=== PATIENT | female | born 1990 | race Hispanic/Latino ===

== ENCOUNTER 2016-03-16 23:59 | Emergency (ER) ==
[2016-03-17] MEDS ORDERED: XYLOCAINE-MPF 1% 5 ML ONE (00:17)
--- NOTE | 2016-03-17 00:23 | PROVIDER DOCUMENTATION ---
HPI-Rash/Wound/ReCheck - General Chief Complaint: Abscess Stated Complaint: EXTREMITY PAIN Time Seen by Provider: 03/17/16 00:18 Source: patient Allergies/Adverse Reactions: Allergies Allergy/AdvReac Type Severity Reaction Status Date / Time No Known Allergies Allergy Verified 09/06/13 15:20 Home Medications: No Home Medications 03/17/16 - History of Present Illness-Dermatology Nature of Presenting Problem: 25 y/o F presents to the ED with an abscess to her right lower leg above the ankle. Pt states she notice it 4 days ago with it getting worse each day. The spot is red and warm to touch. Location: reports: lower extremity Quality: reports: painful Severity: reports: moderate Onset/Duration: reports: 4 days ago Timing: reports: still present, getting worse Exposure: reports: unknown cause Similar Symptoms Previously?: No Recently seen or treated by another doctor?: No Review of Systems - Adult - REVIEW OF SYSTEMS - ADULT Constitutional: denies: chills, fever Eyes: reports: no symptoms reported Ears, Nose, Mouth & Throat: reports: no symptoms reported Cardiovascular: reports: no symptoms reported Respiratory: denies: cough Gastrointestinal: reports: no symptoms reported Genitourinary: reports: no symptoms reported Musculoskeletal: reports: no symptoms reported Integumentary: reports: itching, skin sores/ulcer. denies: hair loss, rash Neurological: reports: no symptoms reported Psychiatric: reports: no symptoms reported Endocrine: reports: no symptoms reported Hematologic/Lymphatic: reports: no symptoms reported Allergic/Immunologic: reports: no symptoms reported All Other Systems: Reviewed and Negative Past History - Adult - PAST MEDICAL HISTORY-ADULT Review of Records: reports: Old Records Reviewed, Nursing Assessment Review, Medications Reviewed Major Childhood Illnesses: reports: denies history Cardiovascular: reports: denies history Respiratory: reports: denies history Gastrointestinal: reports: denies history Obstetrical/Gynecological: reports: denies history Genitourinary: reports: denies history Musculoskeletal: reports: denies history Neurological: reports: denies history Psychiatric: reports: anxiety Endocrine/Immune: reports: denies history Other Conditions: reports: denies history - PRIOR SURGERIES/PROCEDURES Surgical/Procedure History: reports: none - PRIOR HOSPITALIZATIONS Prior Hospitalizations: reports: none - IMMUNIZATION STATUS Childhood Immunizations: See Nurse Assessment Flu Vaccine: See Nurse Assessment - FAMILY HISTORY Family History: reviewed, not pertinent Physical Exam-General - PHYSICAL EXAM-ADULT Initial Vital Signs Reviewed: Yes - CONSTITUTIONAL General Appearance: appears well, alert, no apparent distress - EYES Eyes: PERRL/EOMI, pink conjunctivae - HEAD, EARS, NOSE, MOUTH & THROAT HENMT: moist mucous membranes, normal ENT inspection, TMs normal, pharynx normal - NECK Neck: non-tender, full range of motion, supple, normal inspection - RESPIRATORY Respiratory: lungs clear, normal breath sounds, no pleuratic chest pain, no respiratory distress, no accessory muscle use - CARDIOVASCULAR Cardiovascular: normal peripheral pulses, tachycardia - GASTROINTESTINAL (ABDOMEN) Abdominal Exam: normal bowel sounds, non tender, soft - MUSCULOSKELETAL Back Exam: normal inspection, no CVA tenderness, no vertebral tenderness Extremity: normal range of motion, non-tender, normal gait. negative: normal inspection - SKIN Integumentary: normal color, normal turgor, warm/dry, other (abscess right low medial side of lower leg above ankle 3 cm of red warm) - NEUROLOGIC Neurologic: grossly normal, no motor/sensory deficits - PSYCHIATRIC Psych/Mental Status: normal mood/affect, normal thought content, normal thought process, oriented x 3 Progress - PLAN OF CARE/RESULTS Progress/Plan/Lab Results: Orders Category Date Time Status Lidocaine 1% Pf [Xylocaine-Mpf 1%] 5 ml Med 03/17/16 00:17 Discontinued .ROUTE As Directed Vital Signs Temp Pulse Resp BP Pulse Ox 03/17/16 00:07 98.5 F 121 H 18 138/67 100 No Known Allergies Allergy (Verified 09/06/13 15:20) No Home Medications 03/17/16 Procedures - INCISION & DRAINAGE Abscess Type: Subcutaneous Anesthetic: 1%, Lidocaine/Xylocaine Blade Size: 11 Packing placed?: No Sterile Dressing Applied?: Yes Drainage: Small Amount Departure - Departure Time of Disposition Order: 00:24 DIAGNOSIS: Abscess Disposition: HOME 01 Certified Medical Emergency: Emergent Condition: Stable Additional Instructions: ED Follow Up Instructions: You have been treated by a care provider in the Emergency Department. These instructions are being provided to you so you can have an understanding of how to care for yourself upon discharge. Upon discharge from the Emergency Department, you are responsible for making arrangements for follow-up care by a physician of your choice. Take all prescribed medications as directed. Return to the Emergency Department immediately for any new or worsening symptoms. You may call the Physician Referral phone number at [phone] to obtain a list of Physicians who are taking new patients. Attestation - Scribe Verification/Attestation Scribe:: Robel Garcia Acting as Scribe for:: Saurav Barba Scribe documention review:: This chart was documented by a scribe and accurately reflects the service the provider performed and the decisions made by the provider.
[2016-03-17] MEDS ORDERED: TYLENOL WITH CODEINE #3 PO ONE (00:24)
[2016-03-17] MEDS ORDERED: SEPTRA DS PO ONE (00:24)
[2016-03-17 01:16] VITALS: BP 136/90
== END 2016-03-17 01:16 | disposition home or self-care (01) ==
LOC: P.ED 23:59
DX: L02.415 Cutaneous abscess of right lower limb (principal); M79.661 Pain in right lower leg; L53.9 Erythematous condition, unspecified; L98.9 Disorder of the skin and subcutaneous tissue, unspecified; L29.9 Pruritus, unspecified; R00.0 Tachycardia, unspecified